=== PATIENT | female | born 1935 | race Caucasian/White ===

== ENCOUNTER 2016-05-04 06:59 | Inpatient (IN) | payer OTHER ==
[~2016-05-04 06:59] MED LIST: NIMBEX 10 MG/5 ML VIAL IV ONE
[2016-05-04] MEDS ORDERED: Albuterol/Ipratropium Neb 3 ML NEB NEB ONE ×2 (07:14→08:00)
--- NOTE | 2016-05-04 07:20 | HIM.ANES ---
Anesthesia Evaluation & Plan Diagnoses: SHORTNESS OF BREATH (05/04/16) EPIGASTRIC PAIN (05/04/16) Consented Procedure: splenectomy Surgeon:: Jerardo Lu - Focused Review of Systems Cardiac History: Yes: Hx Hypertension, Hx Cardiac Catheterization (), Hx Cardiac Disorders HEENT: Yes: Removable Dental Work, Hx Hearing Impairment, Hx Vision Problem, Other HEENT Problems No: Loose/Decaying Teeth Hx Other HEENT Problems: SEASONAL ALLERGIES, INNER EAR Respiratory: Yes: Hx Asthma, Hx Chronic Obstructive Pulmonary Disease (COPD), Hx Home O2 (2L CONTINUOUS) Gastrointestinal: Yes: Hx Gastroesophageal Reflux Disease, Hx Gastrointestinal Disorders, Hx Chronic Constipation Neurological/Musculoskeletal: Yes: HX Cerebrovascular Accident (WITH DIZZINESS) , Hx Transient Ischemic Attacks (TIA), Hx Back Pain, Hx Neurological Disorders Other Neurological Problems: "light stroke", CHRONIC HEADACHE Psychological: Yes Hx Anxiety, Yes Hx Mental/Emotional Disorders Blood/Autoimmune: Yes: Hx Anemia No: Hx AIDS, Hx Hepatitis (type) Smoking Status: Never smoker Hx Echocardiogram (date): Yes (12/31/2015 EF 65% MILD MR, TR) Surgical History: Yes: Bladder Tact, Back, Hip (RT TKA) - Focused Physical Exam Mallampati: Class II Thyromental Distance: Greater than 3 Neck: Full Range of Motion Dental: Edentulous Cardiovascular/Chest: Systolic murmur Respiratory: Lungs clear Any problems with anesthesia, including nausea and vomiting?: No Any relatives with a history of Malignant Hyperthermia?: No Does patient have a history of Malignant Hyperthermia?: No Beta Larry given (if appropriate): N/A Does the patient have a history of Motion Sickness-: Yes Other: Allergies Allergy/AdvReac Type Severity Reaction Status Date / Time amoxicillin Allergy Severe Rash-Genera Verified 05/03/16 09:37 lized simvastatin Allergy MYALGIA Verified 05/03/16 09:37 Home Medications Medication Instructions Recorded Last Taken Type Lisinopril 10 mg PO DAILY 07/25/13 Unknown History Albuterol Sulfate Nebs [Proventil, 3 ml INH Q4 PRN 05/03/16 Unknown History Ventolin] Albuterol Sulfate [Proair Hfa] 2 puff INH Q4-6H PRN 05/03/16 Unknown History Calcium 500 mg PO DAILY 05/03/16 Unknown History Clopidogrel Bisulfate [Plavix] 75 mg PO DAILY 05/03/16 1 Week Ago History Docusate Sodium [Colace] 100 mg PO BID 05/03/16 Unknown History Fluticasone/Salmeterol [Advair 1 puff INH BID 05/03/16 Unknown History 100/50] Loratadine [Claritin] 10 mg PO DAILY 05/03/16 Unknown History Ondansetron HCl [Zofran] 4 mg PO Q6H PRN 05/03/16 Unknown History Pantoprazole Sodium [Protonix] 20 mg PO DAILY 05/03/16 Unknown History Sennosides/Docusate Sodium [Senna 1 each PO HS PRN 05/03/16 Unknown History Plus Tablet] Height and Weight Patient's height 5 ft 5 in Patient's weight 70.76 kg BMI 38.7 METS - Level of Activity: Eating, Dressing, walking around house, dishwashing - Anesthetic Plan Anesthesia Type: General ASA Class: 3 -: I have examined this patient and reviewed the medical record. The patient has been assessed prior to anesthesia. Risks and benefits of anesthesia and anesthetic technique options have been discussed and all questions answered. The patient accepts the risk and desires me to proceed with the planned anesthetic.
[2016-05-04 07:25] LABS: MPV 6.9 fL (7.4-10.4)
[2016-05-04] MEDS ORDERED: Clindamycin 600 mg/D5W 50 ml 600 MG/50 ML IVB IV ONE (07:27)
[2016-05-04 07:39] LABS: BLOOD UREA NITROGEN 16 MG/DL (7-17); CALC CORRECTED 9.5 MG/DL (8.4-10.2); CALCIUM 9.4 MG/DL (8.4-10.2); CALCULATED OSMOLALITY 275 MOs/Kg (270-290); CHLORIDE 104 mEq/L (98-107); GLUCOSE 113 MG/DL (70-99); SODIUM LEVEL 142 mEq/L (137-146); TOTAL PROTEIN 7.1 G/DL (6.3-8.2)
[2016-05-04 07:39] LABS: LEUKOCYTES/URINE TRACE (NEGATIVE); NITRITE/URINE NEG (NEGATIVE); RBC/URINE 0-2 (0-5); URINE OCCULT BLOOD 1+ (NEG/TRACE)
[2016-05-04 08:06] LABS: SEG NEUTROPHIL 21 % (45-76)
[2016-05-04] MEDS ORDERED: LABETALOL 20 MG/4 ML SYRINGE IV PRN (08:36)
[2016-05-04] MEDS ORDERED: hydrALAZINE 20 MG/ML VIAL IV PRN (08:36)
[2016-05-04] MEDS ORDERED: MEPERIDINE 25 MG/ML TUBEX IV PRN (08:36)
[2016-05-04] MEDS ORDERED: HYDROmorphone 1 MG INJECTION IV PRN (08:36)
[2016-05-04] MEDS ORDERED: ONDANSETRON HCL 4 MG/2 ML VIAL IV PRN ×2 (08:36→12:59)
[2016-05-04] MEDS ORDERED: ONDANSETRON HCL 4 MG ODT TAB PO PRN (08:36)
[2016-05-04] MEDS ORDERED: FENTANYL 100 MCG/2 ML VIAL IV PRN (08:36)
[2016-05-04] MEDS ORDERED: LIDOCAINE 100 MG PFS IV ONE (10:00)
[2016-05-04] MEDS ORDERED: NEOSTIGMINE 1 MG/1 ML (1:1000) INJ 10 ML MDV IM ONE (10:00)
[2016-05-04] MEDS ORDERED: GLYCOPYRROLATE 1 MG VIAL IM ONE (10:00)
[2016-05-04] MEDS ORDERED: PROPOFOL 200 MG/20 ML VIAL IV ONE (10:00)
[2016-05-04] MEDS ORDERED: DEXAMETHASONE 4 MG/ML VIAL IV ONE (10:00)
[2016-05-04] MEDS ORDERED: FENTANYL 250 MCG/5 ML VIAL IV ONE (10:00)
[2016-05-04] MEDS ORDERED: SUCCINYLCHOLINE 20 MG/1 ML INJ 10 ML MDV IV ONE (10:00)
[2016-05-04] MEDS ORDERED: ROCURONIUM 50 MG/5 ML VIAL IV ONE (10:00)
[2016-05-04] MEDS ORDERED: ONDANSETRON HCL 4 MG/2 ML VIAL IV ONE (10:00)
--- NOTE | 2016-05-04 10:10 | HIMOPRPT ---
DATE OF PROCEDURE: 05/04/16 PREOPERATIVE DIAGNOSIS: Splenomegaly POSTOPERATIVE DIAGNOSIS: Same, final pathology pending PROCEDURE: Laparoscopic splenectomy. SURGEON: Jerardo Lu M.D. ANESTHESIA: General. COMPLICATIONS: None. SPECIMEN: Spleen sent to pathology.. PACKINGS AND DRAINS: None. ESTIMATED BLOOD LOSS: 100 ml. OPERATIVE FINDINGS AND TECHNIQUE: With consent, the patient was brought to the operative suite, placed in supine position. Following general anesthesia, a Jara catheter was placed. Abdomen and flank were prepped and draped in usual fashion. Skin incision was made in the midline. Dissection was carried down through the fascia. Musculofascial layers were incised and peritoneal cavity was entered under direct vision. Abdominal exploration was undertaken. The spleen was markedly enlarged. Visualized and palpable portion of the liver was normal. Gallbladder was surgically absent. Stomach and omentum appeared normal. There were several small accessary spleens in the omentum towards the splenic hilum. These were excised and passed off separately. The remainder the visualized portion of the small and large intestine appeared normal. The splenocolic ligament was identified and was ligated using Harmonic Scalpel. Lateral attachments of spleen to the lateral abdominal wall were freed up bluntly. Inferior splenic vessels were identified and were ligated with the Harmonic. Short gastric vessels were ligated and divided as well up to the highest short gastric vessel using Harmonic scalpel. The lateral attachments of the spleen up to the diaphragm were taken down. Vascular stapling device was then placed across the splenic hilum across the hilar vessels. These were ligated with the vascular stapling device and this proceeded without incident. The staple lines were intact and hemostatic. The spleen was brought out of the abdomen and passed off as specimen. Abdominal cavity was irrigated and dried. Hemostasis has been achieved. No other gross abnormalities were noted. The fascia of the middle most incision was closed with looped PDS in a running fashion. Prior to this Seprafilm was placed inside the abdominal cavity. Skin approximation was accomplished using dwight. Sterile dressings were applied. The patient tolerated the procedure well with findings as described. At termination of the procedure, all instrument, sponge, and needle counts were correct.
[2016-05-04] MEDS ORDERED: FENTANYL 100 MCG/2 ML VIAL ONE ×2 (10:25→10:50)
[2016-05-04] MEDS: FENTANYL 100 MCG/2 ML VIAL IV PRN ×4 (10:30→11:03)
[2016-05-04] MEDS ORDERED: HYDROmorphone 1 MG INJECTION ONE (11:41)
[2016-05-04] MEDS: HYDROmorphone 1 MG INJECTION IV PRN ×2 (11:42→12:03)
[2016-05-04] MEDS ORDERED: DOCUSATE-SENNA CONCENTRATE TAB PO PRN (12:59)
[2016-05-04] MEDS ORDERED: PROMETHAZINE 25 MG/ML VIAL IV PRN (12:59)
[2016-05-04] MEDS ORDERED: ALBUTEROL 0.083% 3 ML NEB NEB PRN (12:59)
[2016-05-04] MEDS ORDERED: DIPHENHYDRAMINE 25 MG CAP PO PRN (12:59)
[2016-05-04] MEDS ORDERED: LORAZEPAM 2 MG/ML VIAL IV PRN (12:59)
[2016-05-04] MEDS ORDERED: Aluminum;Magnesium;Simethicone 30 ML UDC PO PRN (12:59)
[2016-05-04] MEDS ORDERED: IBUPROFEN 600 MG TAB PO PRN (12:59)
[2016-05-04] MEDS ORDERED: ACETAMINOPHEN 650 MG SUPP PR PRN (12:59)
[2016-05-04] MEDS ORDERED: ACETAMINOPHEN 325 MG/TAB TABLET PO PRN (12:59)
[2016-05-04] MEDS ORDERED: ALBUTEROL 6.7 GM MDI INH PRN (12:59)
[2016-05-04] MEDS: LR 1,000 ML IV SCH (13:17)
--- NOTE | 2016-05-04 13:17 | SC.ANESPOS ---
Post-Anesthesia Note LOC: Fully Awake Post-Anesthesia Assessment: Awake, Returned to Baseline, Hemodynamically Stable , Pain Control Adequate Phase I & II Recovery Complete: Yes Apparent Anesthesia Complication: No : N - Vital Signs Blood Pressure: 123/67 Pulse: 70 Resp Rate: 18 O2 Sat: 96 Temp: 98.4 F
[2016-05-04] MEDS ORDERED: Vaccine Screening Complete SCH (14:00)
[2016-05-04] MEDS ORDERED: FLUTICASONE/SALMETEROL 100/50 DISKUS INH SCH (14:00)
[2016-05-04] MEDS: OXYCODONE HCL 5 MG TABLET PO PRN (16:58)
[2016-05-04] MEDS: MORPHINE 2 MG/ML INJECTION IV PRN ×2 (19:52→22:59)
[2016-05-04] MEDS: FLUTICASONE/SALMETEROL 100/50 DISKUS INH SCH (20:20)
[2016-05-04] MEDS: ENOXAPARIN 40 MG/0.4 ML PFS SQ SCH (22:58)
[2016-05-05 04:34] VITALS: BMI 28.9
[2016-05-05] MEDS: PANTOPRAZOLE 40 MG TAB PO SCH (04:35)
[2016-05-05 07:33] LABS: MPV 7.8 fL (7.4-10.4)
[2016-05-05] MEDS: LISINOPRIL 10 MG TAB PO SCH (07:58)
[2016-05-05] MEDS: Loratadine 10 MG TAB PO SCH (07:58)
[2016-05-05 08:14] LABS: BLOOD UREA NITROGEN 15 MG/DL (7-17); CALCIUM 8.3 MG/DL (8.4-10.2); CALCULATED OSMOLALITY 266 MOs/Kg (270-290); CHLORIDE 104 mEq/L (98-107); GLUCOSE 74 MG/DL (70-99); SODIUM LEVEL 138 mEq/L (137-146)
[2016-05-05 08:53] LABS: SEG NEUTROPHIL 26 % (45-76)
[2016-05-05] MEDS: FLUTICASONE/SALMETEROL 100/50 DISKUS INH SCH ×2 (08:56→19:09)
[2016-05-05] MEDS: OXYCODONE HCL 5 MG TABLET PO PRN (10:52)
[2016-05-05] MEDS: LR 1,000 ML IV SCH ×2 (11:05→15:51)
--- NOTE | 2016-05-05 12:44 | PCM.SURGRO ---
- Subjective Chief Complaint: chronic back pain Post Op Day: 1 (splenectomy) Patient: Reports: Feels better, Pain is less (Patient denies abdominal pain. She reports chronic back pain that she has had for years. She reports that this is worse when she lays in bed. She reports that she feels better when she sleeps in a recliner.), Tolerating liquids well, No Bowel Movement, Afebrile, Ambulating in Room. Denies: Voiding without difficulty (stratton catheter in), Nausea, Vomiting, Shortness of breath - Objective / Physical Exam Vital Signs: Temperature: 97.8 F (05/05/16 09:45) HR: 74 (05/05/16 09:45)RR: 18 (05/05/16 09: 45) BP: 130/74 (05/05/16 09:45)Pulse Ox: 95 (05/05/16 09:45) General: Alert, Oriented x3, Cooperative HEENT: Normal Respiratory: Normal - CTA Cardiovascular: Regular rate and rhythm Gastrointestinal: Soft, Bowel Sounds. negative: Distended, Tender, Guarding, Firm, Rigid, Hernia Extremities: negative: Swelling, Edema Psych/Mental Status: Appropriate, Normal Affect, Cooperative. negative: Agitated, Anxious Neurological: Normal speech Skin: No rashes Laboratory/Diagnostics Reviewed: 05/05/16 06:41 05/05/16 06:41 - Assessment and Plan (1) Post-splenectomy Acute Present on Admission: Yes Comment/Plan: The patient is postoperative day #1. We will continue supportive care and await return of bowel function. We will mobilize patient. Remove stratton catheter. Plan for discharge planning to correction facility. I discussed the current treatment plan with the patient and the patient's son. All questions were answered.
[2016-05-05] MEDS: ENOXAPARIN 40 MG/0.4 ML PFS SQ SCH (21:32)
[2016-05-06] MEDS: OXYCODONE HCL 5 MG TABLET PO PRN ×3 (02:41→18:49)
[2016-05-06] MEDS: PANTOPRAZOLE 40 MG TAB PO SCH (06:15)
[2016-05-06] MEDS: Loratadine 10 MG TAB PO SCH (08:00)
[2016-05-06] MEDS: LISINOPRIL 10 MG TAB PO SCH (08:00)
[2016-05-06] MEDS: FLUTICASONE/SALMETEROL 100/50 DISKUS INH SCH ×2 (08:20→20:28)
[2016-05-06] MEDS: LR 1,000 ML IV SCH ×2 (11:09→11:10)
[2016-05-06] MEDS ORDERED: MAGNESIUM HYDROXIDE 30 ML BOTTLE PO ONE (14:52)
--- NOTE | 2016-05-06 14:55 | PCM.SURGRO ---
- Subjective Chief Complaint: cramping in abdomen Post Op Day: 2 Patient: Reports: Feels better (Patient denies abdominal pain. She reports cramping feeling in abdomen that she is goind to pass flatus.), Pain is less, Tolerating liquids well, Voiding without difficulty, No Flatus, No Bowel Movement, Afebrile, Ambulating in [place]. Denies: Nausea, Vomiting, Shortness of breath - Objective / Physical Exam Vital Signs: Temperature: 98.3 F (05/06/16 04:30) HR: 84 (05/06/16 04:30)RR: 18 (05/06/16 04: 30) BP: 138/61 (05/06/16 04:30)Pulse Ox: 96 (05/06/16 04:30) General: Alert, Oriented x3, Cooperative, No acute distress HEENT: Normal Respiratory: Normal - CTA Cardiovascular: Regular rate and rhythm Gastrointestinal: Soft, Bowel Sounds. negative: Distended, Tender, Guarding, Firm, Rigid, Hernia Extremities: negative: Swelling, Edema Psych/Mental Status: Appropriate, Normal Affect, Cooperative. negative: Agitated, Anxious Neurological: Normal speech Skin: No rashes Lymphatics: Normal - Assessment and Plan (1) Post-splenectomy Acute Present on Admission: Yes Comment/Plan: The patient is postoperative day #2. We will continue supportive care and DVT prophylaxis. Await return of bowel function. We will plan to continue to mobilize patient. Advance diet as able. The plan is for placement at a rehabilitation facility. I discussed the current treatment plan with the patient and the patient's son. All questions were answered. They voiced understanding and agreement with the above plan.
[2016-05-06] MEDS: ENOXAPARIN 40 MG/0.4 ML PFS SQ SCH (21:48)
[2016-05-07] MEDS: LR 1,000 ML IV SCH ×2 (05:38→11:25)
[2016-05-07] MEDS: PANTOPRAZOLE 40 MG TAB PO SCH (05:38)
[2016-05-07] MEDS: FLUTICASONE/SALMETEROL 100/50 DISKUS INH SCH (07:40)
[2016-05-07] MEDS: Loratadine 10 MG TAB PO SCH (08:21)
[2016-05-07] MEDS: LISINOPRIL 10 MG TAB PO SCH (08:22)
--- NOTE | 2016-05-07 11:54 | PCM.SURGRO ---
- Subjective Post Op Day: 3 Patient: Reports: Bowel Movement. Denies: Nausea, Vomiting, Shortness of breath - Objective / Physical Exam Vital Signs: Temperature: 98.7 F (05/07/16 04:37) HR: 84 (05/07/16 04:37)RR: 18 (05/07/16 04: 37) BP: 128/60 (05/07/16 04:37)Pulse Ox: 96 (05/07/16 04:37) General: Alert Respiratory: Normal - CTA Cardiovascular: Regular rate and rhythm Gastrointestinal: Soft, Bowel Sounds, Other (Incision clean and dry). negative : Distended, Tender - Assessment and Plan (1) Splenomegaly Resolved R16.1 - SPLENOMEGALY, NOT ELSEWHERE CLASSIFIED Present on Admission: Yes Comment/Plan: Postop day 3. Status post splenectomy. She has no nausea or vomiting. She has no fevers or chills. She is ambulating well. She is voiding well. She has tolerated regular diet. Patient can be placed in a rehabilitation facility/ longterm whenever it is acceptable to the [facility]. Resource management continues to work diligently on placement.
--- NOTE | 2016-05-07 12:53 | PCM.DCS92 ---
- Final/Secondary Discharge Diagnosis (1) Splenomegaly Resolved R16.1 - SPLENOMEGALY, NOT ELSEWHERE CLASSIFIED Present on Admission: Yes Plan/Goal/Comment: Postop day 3. Status post splenectomy for splenomegaly. She is deemed stable candidate for transfer to a rehabilitation facility/group home today. This had been discussed with the family and the patient preoperatively. Discharge Disposition: Longterm Facility Discharge Condition: Stable Cognitive Discharge Status: Unimpaired Fuctional Discharge Status: Walker Assistance Physician Follow up/Referrals: Jerardo Lu MD [Staff Physician] - Keep Scheduled Appt New Prescriptions: Oxycodone Immediate Release [Oxy-Ir] 5 mg PO Q4H PRN #40 tab PRN Reason: Pain Promethazine HCl [Phenergan] 12.5 mg PO Q6 PRN #30 tablet PRN Reason: Nausea/Vomiting Diet at Discharge: As Tolerated Activity: No Heavy Lifting, No Driving Call Office For: Worsening Symptoms, Wound is Draining Pus, Fever over 101 F Discontinue use of:: Alcohol, All Illegal Substances, All Types of Tobacco - DC Summary Notes Hospital Course Note:: Discharge summary on patient named CHEMA TAPIA admitted to [facility] on 05/04/16 by Jerardo Lu MD. Date of discharge is 12/2016. Patient was admitted on 05/04/2016 for splenectomy for splenomegaly which was symptomatic. She underwent a successful splenectomy. Patient recovered well. She remained in the hospital for 3 postoperative days before being deemed an acceptable candidate for transfer to a senior care facility. Patient had no complications intraoperatively nor did she have any complications postoperatively. Physical therapy seen the patient and the patient was walking with walker assistance at the time of discharge out of the acute hospital setting. Patient was restarted the majority of home medications prior to discharge including Plavix. For the full medication list please see the electronic medical record discharge summary for details. Patient was able to tolerate regular diet. She was voiding well. She is moving her bowels well. As stated above she is deemed stable candidate for discharge to a senior care facility. She is to follow up Dr. Lu in the office at her regular scheduled visit. All questions regarding her postoperative care from a surgical stand point should be directed Dr. Lu is office. Questions regarding medications should be directed to the [facility]. The patient was subsequently transferred to the group home in stable condition. Wound Care Surgical Site: Yes Site Description (if applicable): Abdomen May Shower Starting:: Today Ability To Perform Care (if applicable): Yes - Physical Exam Vital Signs: Initial Vitals Temperature 97.7 F 05/04/16 07:47 Pulse Rate 89 05/04/16 07:47 Respiratory Rate 16 05/04/16 07:47 Blood Pressure 144/61 05/04/16 07:47 Pulse Oxygen Saturation 98 05/04/16 07:47 Constitutional: No apparent distress Respiratory: Normal - CTA Cardiovascular: Normal - GI Auscultation: Normal Palpation: Normal Tenderness: Mild, Other (Incision clean and dry)
[2016-05-07 13:58] VITALS: BP 111/52; PULSE 89; TEMP 98.9
[2016-05-08] MEDS ORDERED: CLOPIDOGREL 75 MG TAB PO SCH (09:00)
== END 2016-05-07 15:51 | DRG 822 ==
LOC: SDC 06:59 → MPS3 12:53
PROVIDERS: ADMIT Surgery Vascular Surgery; ATTEND Surgery Vascular Surgery
PROC: 07TP0ZZ Resection of Spleen, Open Approach (ICD-10-PCS; principal; 2016-05-04 08:45)
DX: C85.17 Unspecified B-cell lymphoma, spleen (principal); E11.9 Type 2 diabetes mellitus without complications; I10 Essential (primary) hypertension; Z88.0 Allergy status to penicillin; Z79.899 Other long term (current) drug therapy; M19.90 Unspecified osteoarthritis, unspecified site; K21.9 Gastro-esophageal reflux disease without esophagitis; H91.90 Unspecified hearing loss, unspecified ear; Z86.73 Personal history of transient ischemic attack (TIA), and cerebral infarction without residual deficits; M54.9 Dorsalgia, unspecified; G89.29 Other chronic pain
CPT/HCPCS: 80048; 80053; 81001; 82962; 85007; 85027; 86850; 86900; 86901; 94640; 96372; 97161; G0237; J0330; J1100; J1170; J1650; J2001; J2060; J2270; J2405; J2710; J3010; J3490; J7620